=== PATIENT | female | born 1980 | race Caucasian/White ===

== ENCOUNTER 2024-07-30 11:00 | Day surgery (SDC) | payer BC ==
[2024-07-30 11:36] LABS: Absolute Basophils 0.1 K/uL (0-0.5); Absolute Eosinophils 0.2 K/uL (0-0.5); Absolute Lymphocytes (CBC) 2.8 K/uL (0.7-4.9); Absolute Monocytes 0.6 K/uL (0.1-1.3); Absolute Neutrophil 4.6 K/uL (1.8-8.0); Basophils % 1.2 % (0-1.3); Eosinophils % 1.9 % (0-4.4); Hematocrit 42.9 % (36.0-45.0); Hemoglobin 15.2 g/dL (12.0-15.0); Lymphocytes % 34.1 % (15.3-44.8); MCH 34.2 pg (27.0-35.0); MCHC 35.5 g/dL (32.0-36.0); MCV 96.3 fL (80-100); MPV 7.9 fL (7.6-11.3); Monocytes % 7.1 % (3.3-12.3); Neutrophils % 55.7 % (41.7-73.7); Platelets 245 thou/uL (152-406); RBC Red Blood Cell Count 4.45 M/uL (3.86-4.86); Red Cell Distribution Width 14.4 % (12.1-15.2)
[2024-07-30] MEDS: Ringers Lactate 1,000 ML IV ONE (12:00)
[2024-07-30 12:06] LABS: Urine Specific Gravity/Preg 1.015 (1.005-1.030)
--- NOTE | 2024-07-30 12:21 | RAD REPORT ---
EXAMINATION: TWO VIEW CHEST XR CLINICAL INDICATION: Female, 43 years old. Preop. Hypertension TECHNIQUE: 2 view radiographs of the chest were performed. COMPARISON: No prior exam. FINDINGS: The lungs are well inflated and clear of focal consolidation. Mild interstitial coarsening throughout the lungs. No pneumothorax or sizable effusion. The heart is normal in size. Mediastinal contours are unremarkable. IMPRESSION: No acute pulmonary abnormalities. Mild interstitial coarsening throughout the lungs, could reflect ch ronic obstructive or interstitial disease.
[2024-07-30 12:24] LABS: Anion Gap 11.4 mEq/L (5.0-15.0); Potassium 3.4 mEq/L (3.5-5.1)
[2024-07-30] MEDS ORDERED: FENTANYL CITR 100 MCG/2 ML ONE (13:38)
[2024-07-30] MEDS ORDERED: LIDOCAINE 2% MPF 5 ML VIAL ONE (13:38)
[2024-07-30] MEDS ORDERED: propofoL 200 MG/20 ML VIAL IV ONE (13:38)
[2024-07-30] MEDS ORDERED: MIDAZOLAM HCL 2 MG/2 ML INJ ONE (13:38)
[2024-07-30] MEDS ORDERED: ONDANSETRON 4 MG/2 ML VIAL ONE (13:38)
[2024-07-30] MEDS ORDERED: dexAMETHasone 10 MG/ML VIAL ONE (13:55)
--- NOTE | 2024-07-30 14:03 | P.BOP ---
Preoperative diagnosis: Right neck posterior to ear abscess, cellulitis, infected subQ mass Postoperative diagnosis: same Primary procedure: Excisional biopsy R neck infected subQ mass with abscess drainage Estimated blood loss: <10cc Specimen: culture Anesthesia: General Transferred to: Recovery Room
[2024-07-30] MEDS: BUPIVACAINE 0.5% PF 10 ML VIAL ONE (14:12)
[2024-07-30] MEDS ORDERED: MUPIROCIN 2% OINT 22GM TUBE TOP ONE (14:13)
[2024-07-30 15:04] VITALS: O2SAT 96
[2024-07-30] MEDS: HYDROCODONE/APAP 7.5/325 MG TAB ONE (15:39)
[2024-07-30 16:20] VITALS: BP 129/84; TEMP 98.3
--- NOTE | 2024-08-02 11:29 | EKG ---
Test Date: 2024-07-30 Test Time: 11:52:45 [employer]: MONI MEASUREMENT RESULTS: Intervals: Rate: 102 WA: 134 QRSD: 74 QT: 332 QTc: 432 [place]: P: 66 WA: 134 QRS: 53 T: 51 INTERPRETIVE STATEMENTS: Sinus tachycardia Otherwise normal ECG No previous ECG available for comparison Electronically Signed On 08-02-24 11:22:15 CDT by Jonatan Mitchell
== END 2024-07-30 15:55 | disposition home or self-care (01) ==
LOC: OR 11:00
PROVIDERS: ATTEND Surgery
PROC: 0JB40ZZ Excision of Right Neck Subcutaneous Tissue and Fascia, Open Approach (ICD-10-PCS; 2024-07-30)
PROC: 0JB50ZZ Excision of Left Neck Subcutaneous Tissue and Fascia, Open Approach (ICD-10-PCS; principal; 2024-07-30 13:45)
DX: L72.0 Epidermal cyst (principal); L08.9 Local infection of the skin and subcutaneous tissue, unspecified; L02.11 Cutaneous abscess of neck; L03.221 Cellulitis of neck
CPT/HCPCS: 93005; 87070; 85025; 80048; 36415; 87205; 81025; 88304; 87075; 71046; 11422; J2704; J2003; J2250; J3010; J1100; J2405; J7120